=== PATIENT | female | born 1985 | race Caucasian/White ===

== ENCOUNTER 2022-08-09 07:34 | Outpatient (REF) | payer OTHER, SELFPAY ==
--- NOTE | ~2022-08-09 | MR_ITS ---
EXAMINATION: MR LUMBAR SPINE WITHOUT CONTRAST CLINICAL INFORMATION: Persistent radiculopathy. COMPARISON: None TECHNIQUE: MRI of the lumbar spine was obtained using routine sequences without contrast. FINDINGS: Lumbar vertebral bodies maintain normal heights. There is mild retrolisthesis of L3 on L4 and L4 on L5 with mild disc desiccation seen at these levels. Mild amount of endplate edema seen superiorly at L5. The distal spinal cord appears normal. The conus medullaris terminates normally at T12-L1. The visualized paraspinal muscles and intra-abdominal and pelvic contents are within normal limits. SPINAL LEVELS: L1-L2: No posterior disc abnormality. No spinal canal or neural foraminal stenosis. L2-L3: No posterior disc abnormality. No spinal canal or neural foraminal stenosis. L3-L4: Disc bulging with shallow central protrusion and mild facet arthropathy. Mild bilateral neural foraminal stenosis and mild spinal canal stenosis. L4-L5: Disc bulging with central protrusion and superimposed right subarticular extrusion with inferior migration resulting in compression of the traversing right L5 nerve root in the subarticular zone. Mild spinal canal stenosis. No significant neural foraminal stenosis. L5-S1: Disc bulging with right subarticular protrusion resulting in narrowing of the right subarticular zone. Mild to moderate facet arthropathy. Extruded disc material from the L4-L5 level contacts the exiting right L5 nerve root. No neural foraminal stenosis. MR/MR lumbar spine wo con IMPRESSION: 1. At L4-L5 there is right subarticular extrusion with inferior migration causing compression of the traversing right L5 nerve root. Extruded disc material also contacts the exiting right L5 nerve root. 2. At L5-S1 there is right subarticular protrusion without definite traversing nerve root compression. 3. At L3-L4 there is mild spinal canal stenosis and mild bilateral neural foraminal stenosis.
== END 2022-08-09 07:35 | disposition home or self-care (01) ==
LOC: HO.MRI 07:34
PROVIDERS: Visit Provider Nurse Practitioner Family
DX: M54.9 Dorsalgia, unspecified (principal)
CPT/HCPCS: 72148

== ENCOUNTER → 2022-09-29 14:30 | Outpatient (BNVA) | payer OTHER, SELFPAY | PROVIDERS: Visit Provider Physician Assistant ==

== ENCOUNTER 2022-10-06 16:07 | Outpatient (REF) | payer OTHER, SELFPAY ==
--- NOTE | ~2022-10-06 | XR_ITS ---
EXAMINATION: XR CHEST CLINICAL INFORMATION: Cough COMPARISON: None available. TECHNIQUE: 2 views of the chest were obtained. FINDINGS: There is some scarring seen along the minor fissure. There is no evidence of acute parenchymal disease, pneumothorax, or pleural effusion. Heart normal size. No evidence of pulmonary edema. XR/XR chest 2V IMPRESSION: No acute disease.
== END 2022-10-06 16:08 | disposition home or self-care (01) ==
LOC: HO.XRAY 16:07
PROVIDERS: PCP Internal Medicine; Visit Provider Physician Assistant Medical
DX: R05.9 Cough, unspecified (principal)
CPT/HCPCS: 71046

== ENCOUNTER 2023-09-03 08:12 | Outpatient (AMB) | payer OTHER, SELFPAY ==
[2023-09-03 08:45] VITALS: BP 120/90; PULSE 95; TEMP 36.1; O2SAT 99; BMI 33.3
--- NOTE | 2023-09-03 08:45 | AM.OFFWIN_ITS ---
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 Intake Note: pt is bhere today for sore throat ear pain diff bearing started sunday Patient Tobacco Use Status: Never used Tobacco Allergies No Known Allergies Allergy (Verified 09/03/23 08:48) Do you need a note to return to daycare/school/sports/work: No HPI HPI Comments History of Present Illness Details Patient presents to the walk in for 1 week cough, congestion, bilateral ear pain, 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 Answers questions appropriately. Fully engaged in examination. Skin: warm, dry, intact HEENT: bilateral TMS: erythematous, cloudy. Posterior pharynx erythematous without exudate. Sclera without icterus or injection. Cardiac: External chest normal in appearance. Respiratory: +cough. LSCTAB. Abdomen: without gross distension. Neurological: Oriented to person, place, time and situation. Thought process intact. Psychiatric: Appropriate mood and affect. Good judgment and insight.General: awake, alert, oriented. Answers questions appropriately. Fully engaged in examination. Results AMB Rapid Strep AMB Rapid Strep Negative Last Edit by MELANIE Wise on 09/03/23 09:1 2 Results Reviewed Results Reviewed: rapid strep negative Assessment & Plan Assessment & Plan (1) Otitis media: Code(s): H66.90 - Otitis media, unspecified, unspecified ear Qualifiers: Laterality: bilateral Plan Augmentin DS BID for 7 days. Benzonatate 100 mg PO BID PRN Drink plenty of fluids, tylenol/motrin as needed. Work note provided All questions and concerns were addressed during the visit, patient agrees with the plan. Follow up with pcp or in walkin for any new or worsening symptoms. Orders: Orders AMB Rapid Strep Screen Today Z13.9 - Encounter for screening, unspecified Medications: New amoxicillin-pot clavulanate 875-125 mg 1 tab PO BID 14 tabs 0RF benzonatate 100 mg PO BID PRN 20 caps 0RF cough Coding Level of Care Code Est Pt Level 3 (51612) Diagnoses Otitis media H66.90 Laterality: bilateral
== END 2023-09-03 09:18 | disposition home or self-care (01) ==
PROVIDERS: PCP Internal Medicine; Visit Provider Registered Nurse Emergency
DX: H66.90 Otitis media, unspecified, unspecified ear (principal)
CPT/HCPCS: 87880; 99213

== ENCOUNTER 2023-09-13 08:05 | Outpatient (AMB) | payer OTHER, SELFPAY ==
--- NOTE | 2023-09-13 08:12 | AM.OFFWIN_ITS ---
Intake Vital Signs 09/13/23 08:14 Height 5 ft 8 in Weight 221 lb 2 oz BMI 33.6 BP 126/82 Blood Pressure Location Rt brachial Position Sitting Pulse 83 Pulse Source Pulse Oximeter Temp 98.3 F Temp Source Oral Pulse Oximetry (%) 98 Intake Visit Reasons: EP ?ear infection Intake Note: pt is here for c.o ear infection, was here last week and finished round of antibiotics and states not feeling better Patient Tobacco Use Status: Never used Tobacco Allergies No Known Allergies Allergy (Verified 09/13/23 08:16) Do you need a note to return to daycare/school/sports/work: Yes HPI HPI Comments History of Present Illness Details 37 y/o female patient who presents to [facility] in clinic with c/o right ear pain and sore-throat. Pt was seen here 10 days ago for similar issue. She was prescribed Oral Abx, she completed the course and now reports not feeling any better. Denies fevers, chills, [place] and vomiting. PFSH Social History Patient Tobacco Use Status: Never used Tobacco Review of Systems Const All systems reviewed & are unremarkable except as noted in HPI and below Physical Exam Vital Signs: Last Vital Signs Temp 98.3 F 09/13/23 08:14 Pulse 83 09/13/23 08:14 BP 126/82 09/13/23 08:14 Pulse Ox 98 09/13/23 08:14 BMI result Body Mass Index 33.6 Const General: comfortable and no acute distress Orientation/consciousness: patient oriented x3 HEENT Head: Yes normocephalic Ears: external ears normal and TM abnormal bulging, erythematous on the right, with fluid behind the TM bilateral and retracted; not perforated General nose exam: Abnormal mucous membranes and turbinates present boggy and erythematous Mouth: moist mucous membranes Resp Effort & Inspection: normal respiratory effort and able to speak in complete sentences Neuro General: patient oriented x3 Assessment & Plan Assessment & Plan (1) Otitis media: Code(s): H66.90 - Otitis media, unspecified, unspecified ear Qualifiers: Chronicity: subacute Laterality: right Otitis media type: allergic Recurrence: not specified as recurrent Qualified Code(s): H65.111 - Acute and subacute allergic otitis media (mucoid) (sanguinous) (serous), right ear Plan: - Acetaminophen for pain relief - Will Rxd Otic drops for days. - Loratadine 10 mg BID Medications: New ciprofloxacin-dexamethasone 0.3-0.1 % 4 drps otic (ears) BID 7.5 mL 0RF Ear infection 7 days H65.111 - Acute and subacute allergic otitis media (mucoid) (sanguinous) (serous), right ear loratadine (Claritin) 10 mg PO DAILY 60 tabs 0RF H65.111 - Acute and subacute allergic otitis media (mucoid) (sanguinous) (serous), right ear Coding Level of Care Code Est Pt Level 3 (96747) Diagnoses Subacute allergic otitis media of right ear, recurrence not specified H65.111 Chronicity: subacute Laterality: right Otitis media type: allergic Recurrence: not specified as recurrent Time Spent (min) 15
[2023-09-13 08:14] VITALS: BP 126/82; PULSE 83; TEMP 36.8; O2SAT 98; BMI 33.6
== END 2023-09-13 09:20 | disposition home or self-care (01) ==
PROVIDERS: PCP Internal Medicine; Visit Provider Nurse Practitioner Family
DX: H65.111 Acute and subacute allergic otitis media (mucoid) (sanguinous) (serous), right ear (principal)
CPT/HCPCS: 99213

== ENCOUNTER 2024-08-15 15:15 | Outpatient (AMB) | payer OTHER, SELFPAY ==
[2024-08-15 15:17] VITALS: BP 118/67; PULSE 96; RESP 14; TEMP 36.6; O2SAT 97; BMI 31.5
--- NOTE | 2024-08-15 15:17 | MHC.PC.OV ---
Vital Signs 08/15/24 15:17 Height 5 ft 8 in Weight 207 lb BMI 31.5 BP 118/67 Respiration 14 Pulse 96 Pulse Source Pulse Oximeter Temp 97.8 F Temp Source Temporal Artery Scan Pulse Oximetry (%) 97 Oxygen Delivery Method Room Air Intake Visit Reasons: Establish Care Geomagnetist Required: No Accompanied by: Self / Same As Patient Allergies No Known Allergies Allergy (Verified 08/15/24 16:02) Medication List - Last Reconciled 08/15/24 by Pao Danielson PA-C fluoxetine 20 mg PO DAILY loratadine TAKE 1 TABLET BY MOUTH EVERY DAY Tobacco use date assessed: 08/15/24 Dental Screening Dental Screen Date: 08/15/24 Did you have a dental visit in the last 12 months?: No Did you have a dental problem in the last 6 months where you did not have access to dental care?: No Was dental information given to patient?: Patient has dentist HPI Establish Care HPI Details The patient is a 38-year-old female presenting to establish care and assess issues with abdominal pain and muscle cramps. She has a history of anxiety, treated with fluoxetine, and uses loratadine for allergies. Her abdominal discomfort is exacerbated post-dining, particularly after fatty meals, necessitating examination like ultrasound to dismiss gallbladder issues. Past negative H. pylori results are documented. Chronic episodic muscle cramps trace back to a challenging childbirth event, potentially linked to prior back spinal disc changes, although vitamin insufficiencies are being considered. Dietary alterations have been recently implemented. Family planning genetics previously dismissed Factor V Leiden and confirmed disintegration for hemochromatosis. There is a precedent of past cervical surgical intervention (LEEP), with consistent follow-up negative screenings until currently, a mild suspension for retesting. Her family history accentuates breast cancer risk, her mother's case influencing the urgency for mammographic screening. A wide familial cancer occurrence is also referenced. 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 - Diet: Suboptimal, associated with abdominal discomfort particularly following fatty foods; recent dietary modification initiated. - Alcohol: Reports moderate consumption. - Activity: Engages in physical job-related activity but no structured exercise mentioned. - Family dynamics: Large family, significant cancer history. - Family Medical History: Notable for mother's breast cancer, leading to early mammogram requirements. [facility], [facility] Medical History (Updated 08/15/24 @ 17:10 by Pao Danielson PA-C) Anxiety Muscle cramps Allergic rhinitis Establishing care with new doctor, encounter for Cervical cancer screening Rectal prolapse Family history of breast cancer RUQ abdominal pain Family History Mother A-fib BP (high blood pressure) Breast cancer Father A-fib BP (high blood pressure) Social History Housing: House Alcohol intake: current Alcohol intake frequency: a few times a week Patient Tobacco Use Status: Never used Tobacco service: No Current occupational status: employed Cognitive needs: No Hearing needs: No Vision needs: Yes (rx contacts/rx glasses) Questionnaire PHQ-9 Over the last 2 weeks, how often have you been bothered by any of the following problems? 1. Little interest or pleasure in doing things: not at all 2. Feeling down, depressed, or hopeless: not at all 3. Trouble falling or staying asleep, or sleeping too much: not at all 4. Feeling tired or having little energy: not at all 5. Poor appetite or overeating: not at all 6. Feeling bad about yourself - or that you are a failure or have let yourself or your family down: not at all 7. Trouble concentrating on things, such as reading the newspaper or watching television: not at all 8. Moving or speaking so slowly that other people could have noticed. Or the opposite - being so fidgety or restless that you have been moving around a lot more than usual: not at all 9. Thoughts that you would be better off or of hurting yourself in some way: not at all Total score: 0 Depression Screening Interpretation: Negative Depression Screening Done: Yes 57880 - PHQ-9 Billing: Yes Source: Developed by Drs. Cristiano Felder, Radha Andrews, Silas Henson and colleagues, with an educational hubert from [employer]. Thrive Questionnaire Date Thrive assessed: 08/15/24 I am a: Patient What is your living situation today?: I have a steady place to live Within the past 12 months, did the food you bought not last and you didn't have the money to get more?: Never true Within the past 12 months, did you worry whether your food would run out before you got money to buy more?: Never true Do you have trouble paying for medicines?: No Do you have trouble getting transportation to medical appointments?: No Do you have trouble paying your heating and electricity bill?: No Do you have trouble taking care of your child, family member or friend?: No Do you have trouble with day-to-day activities such as bathing, preparing meals, shopping, managing finances, etc.?: No Are you currently unemployed and looking for a job?: No Are you interested in more education?: No Please select the resources that you would like help with: None THRIVE Score: 0 AUDIT C Alcohol Use Questionnaire (AUDIT-C) 1. How often do you have a drink containing alcohol?: 2-3 times a week 2. How many drinks containing alcohol do you have on a typical day when you are drinking?: 1 or 2 3. How often do you have six or more drinks on one occasion?: Never Total Score: 3 Score Reviewed/Action Taken: No CONCETTA-7 AMB Questionnaire CONCETTA-7 Date CONCETTA - 7 assessed: 08/15/24 Feeling nervous, anxious, or on edge: 1 = Several days Not being able to stop or control worryin = Several days Worrying too much about different things: 1 = Several days Trouble relaxin = Several days Being so restless that it is hard to sit still: 0 = Not at all Becoming easily annoyed or irritable: 1 = Several days Feeling afraid as if something awful might happen: 0 = Not at all Total CONCETTA-7 score (0-4 normal; 5-9 mild; 10-14 moderate; 15-21 severe): 5 Source: Developed by Drs. Cristiano Felder, Radha Andrews, Silas Henson and colleagues, with an educational hubert from [employer]. CONCETTA-7 Assessment Billing CONCETTA-7 Assessment Tool: CONCETTA-7 Assessment 22918 Review of Systems Const Details: - Gastrointestinal: Reports abdominal pain postprandial, especially after consuming fatty foods; reports feeling of incomplete evacuation. - Musculoskeletal: Reports frequent muscle cramps or Kevin horses in the right leg, post-trauma; denies swelling. - Neurological: Denies current numbness; reports past foot drop. - Reproductive: Denies recent cervical cancer screening following LEEP procedure. 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 - Allergic/Immunologic: Denies seasonal allergies beyond those managed with current medications. Physical exam (Primary Care) Vital Signs: Last Vital Signs Temp 97.8 F 08/15/24 15:17 Pulse 96 08/15/24 15:17 Resp 14 08/15/24 15:17 BP 118/67 08/15/24 15:17 Pulse Ox 97 08/15/24 15:17 Oxygen Delivery Method Room Air 08/15/24 15:17 Care Plan Goal for BP management: <130/90 at Goal BMI result Body Mass Index 31.5 BMI Assessment/Plan discussion: High BMI High, discussed plan: lifestyle, weight reduction, dietary, physical activity and alcohol moderation Tobacco/Smoking Status: Tobacco use Status Tobacco use date assessed 08/15/24 08/15/24 15:20 Patient Tobacco Use Status Never used Tobacco 08/15/24 15:36 PHQ-9: PHQ-9 Score PHQ-9: Total score 0 08/15/24 15:44 Depression Screening Interpretation: Negative Thrive Assessment: Date of Thrive Assessment Date Thrive assessed 08/15/24 08/15/24 15:20 Const Other: Appearance: Alert. Oriented X3. No acute distress. Head: Normal external exam. Normocephalic. Atraumatic. Eyes: Pupils are equal, round, and reactive to light. Extraocular movements intact. Conjunctiva and sclera normal. Eyelids normal. Ears: External auditory canal normal. Tympanic membranes normal. Throat: Pharynx normal. Uvula midline. Moist mucous membranes. Neck: Normal inspection. Neck supple. Full range of motion. No adenopathy. Thyroid Normal. No meningeal signs. No neck mass noted. Cardiovascular: Normal heart rate and rhythm. Heart sound normal. No murmurs noted. Pulses normal throughout. Respiratory: No respiratory distress. Painless inspiration. Breath sounds normal. No wheezes/rales/rhonchi noted. Chest nontender. No accessory muscle usage noted or decreased air movement noted. Abdomen: Soft and nontender. Bowel sounds normal in all 4 quadrants. No distention noted. No organomegaly noted. No visible injury noted. Back: No costovertebral angle tenderness. Full range of motion noted. Skin: Skin warm and dry. Normal skin color. Normal skin turgor. No rashes/lesions/lacerations noted. Extremities: No lower extremity edema. Extremities exhibit normal range of motion. Extremities nontender. Right leg with history of numbness and occasional Kevin horses. Neuro: Oriented X 3. No motor deficit. No sensory deficit. Reflexes normal. Results Reviewed Results Reviewed: - Labs: Normal cholesterol levels with LDL 126 mg/dL, HDL 48 mg/dL, total cholesterol 151 mg/dL; normal glucose, kidney function, sodium, and potassium levels. - Tests: Past negative H. pylori result documented; ultrasound recommended. Coding Level of Care Code Est Pt Level 4 (57526) Complex EM visit Add On G2211 Diagnoses Establishing care with new doctor, encounter for Z76.89 RUQ abdominal pain R10.11 Cervical cancer screening Z12.4 Rectal prolapse K62.3 Family history of breast cancer Z80.3 Allergic rhinitis J30.9 Muscle cramps R25.2 Anxiety F41.9 Additional Codes CONCETTA-7 Assessment Billing - CONCETTA-7 Assessment Tool: CONCETTA-7 Assessment 10316 ([id number]) PHQ-9 - 43185 - PHQ-9 Billing: Yes ([id number]) Assessment & Plan Assessment & Plan (1) Establishing care with new doctor, encounter for: Code(s): Z76.89 - Persons encountering health services in other specified circumstances Category: Medical Plan: Patient was a patient of [facility]. Patient establishing care with us today. (2) RUQ abdominal pain: Code(s): R10.11 - Right upper quadrant pain Category: Medical Plan: Initiation of pantoprazole postponed for H. pylori retest; ultrasound for gallbladder investigation. GI referral if further examinations necessitate subsequent treatment. (3) Cervical cancer screening: Code(s): Z12.4 - Encounter for screening for malignant neoplasm of cervix Category: Medical Plan: Will refer to tetryl wringer operator for cervical cancer screening. (4) Rectal prolapse: Code(s): K62.3 - Rectal prolapse Category: Medical Plan: Referral to GI to rule out underlying causes of abdominal pain and address prolapse issues for potential corrective measures. Condition is chronic and stable continue to monitor. (5) Family history of breast cancer: Code(s): Z80.3 - Family history of malignant neoplasm of breast Category: Medical Plan: The patient was advised to undergo a mammogram given her family history to enable early detection and intervention. (6) Allergic rhinitis: Code(s): J30.9 - Allergic rhinitis, unspecified Category: Medical Plan: Loratadine will be continued for allergic rhinitis management pending any changes in symptoms. Condition is chronic and stable continue to monitor. (7) Muscle cramps: Code(s): R25.2 - Cramp and spasm Category: Medical Plan: Await bloodwork results for deficiencies impacting muscle function. Advised additional nutritional focus and commencement of vitamin regimes if insufficient values are noted. Condition is stable will continue to monitor. (8) Anxiety: Code(s): F41.9 - Anxiety disorder, unspecified Category: Medical Plan: The patient will continue fluoxetine for anxiety management. Monitoring for any side effects or need for dose adjustment will occur during follow-up visits. Condition is chronic and stable continue to monitor. Plan Plan Patient was informed and verbally consented to the use of an ambient scribe for clinic note documentation during this visit. 1. Anxiety The patient will continue fluoxetine for anxiety management. Monitoring for any side effects or need for dose adjustment will occur during follow-up visits. 2. Allergic Rhinitis Loratadine will be continued for allergic rhinitis management pending any changes in symptoms. 3. Abdominal Pain Initiation of pantoprazole postponed for H. pylori retest; ultrasound for gallbladder investigation. GI referral if further examinations necessitate subsequent treatment. 4. Family History Of Breast Cancer The patient was advised to undergo a mammogram given her family history to enable early detection and intervention. 5. Rectal Prolapse Referral to GI to rule out underlying causes of abdominal pain and address prolapse issues for potential corrective measures. 6. Episodic Muscle Cramps Await bloodwork results for deficiencies impacting muscle function. Advised additional nutritional focus and commencement of vitamin regimes if insufficient values are noted. 7. Vitamin Deficiency Probable Pending lab outcomes, the patient will receive tailored advice on dietary intake or supplement requirements. I engaged the patient in a comprehensive review of her symptoms and current management strategies. For her anxiety, continuing fluoxetine was recommended, providing consistent symptom control. Regarding her abdominal pain, I discussed the need for an ultrasound and reiterated the importance of retesting for H. pylori prior to prescribing pantoprazole. We reviewed family history implications on her medical regimen, specifically the importance of a mammogram owing to her mother's breast cancer. I advised avoiding predisposed dietary triggers to alleviate gastrointestinal discomfort and considered dietary adjustments to address probable vitamin deficiencies. We agreed on referrals to Gastroenterology and subsequent testing to evaluate her prolapsed condition and ascertain any neurological implications underlying muscle cramps. I emphasized maintaining an open portal for any arising concerns or queries. Orders: Orders US abdomen complete Today R10.11 - Right upper quadrant pain Complete Blood Count Auto Diff Today Z00.00 - Encounter for general adult medical examination without abnormal findings Comprehensive Ancram. Panel Fast Today Z00.00 - Encounter for general adult medical examination without abnormal findings Lipid Panel Today Z00.00 - Encounter for general adult medical examination without abnormal findings Hemoglobin A1c Today Z00.00 - Encounter for general adult medical examination without abnormal findings Vitamin D 25-OH Total Today Z00.00 - Encounter for general adult medical examination without abnormal findings MM screening mammo BI Today Z12.31 - Encounter for screening mammogram for malignant neoplasm of breast, Z80.3 - Family history of malignant neoplasm of breast Zinc Today Z00.00 - Encounter for general adult medical examination without abnormal findings C Reactive Protein Today Z00.00 - Encounter for general adult medical examination without abnormal findings Magnesium Today Z00.00 - Encounter for general adult medical examination without abnormal findings Liver Panel Today Z00.00 - Encounter for general adult medical examination without abnormal findings TSH reflex Free T4 Today Z00.00 - Encounter for general adult medical examination without abnormal findings Vitamin B12 and Folate Today Z00.00 - Encounter for general adult medical examination without abnormal findings H pylori Ag Stool Today R10.11 - Right upper quadrant pain Vitamin A Today Z00.00 - Encounter for general adult medical examination without abnormal findings Vitamin B1 Today Z00.00 - Encounter for general adult medical examination without abnormal findings Creatine Kinase Total Today Z00.00 - Encounter for general adult medical examination without abnormal findings Referrals Gastroenterology Referral K62.3 - Rectal prolapse, R10.11 - Right upper quadrant pain PRACTICE ADMINISTRATOR Referral Z12.4 - Encounter for screening for malignant neoplasm of cervix Medications: New pantoprazole 40 mg PO DAILY 90 tabs 2RF Patient Instructions: - Continue taking fluoxetine and loratadine as directed. - Complete blood work and stool testing as advised. - Attend upcoming mammogram and ultrasound appointments. - Avoid fatty foods to reduce abdominal pain. - Begin dietary adjustments to include more balanced nutrients. - Follow up with GI as referred, and attend your six-month follow-up. - Monitor muscle cramps and increase Vitamin B and magnesium as dietary supplements.
== END 2024-08-15 16:03 | disposition home or self-care (01) ==
LOC: HO.HMCSH 15:15
PROVIDERS: PCP Internal Medicine; Visit Provider Physician Assistant Medical
DX: Z76.89 Persons encountering health services in other specified circumstances (principal); R10.11 Right upper quadrant pain; Z12.4 Encounter for screening for malignant neoplasm of cervix; K62.3 Rectal prolapse; Z80.3 Family history of malignant neoplasm of breast; J30.9 Allergic rhinitis, unspecified; R25.2 Cramp and spasm; F41.9 Anxiety disorder, unspecified

== ENCOUNTER → 2024-08-15 15:15 | Outpatient (BNVA) | payer OTHER, SELFPAY | PROVIDERS: PCP Internal Medicine; Visit Provider Physician Assistant Medical | DX: K62.3 Rectal prolapse (principal); R10.11 Right upper quadrant pain; J30.9 Allergic rhinitis, unspecified; R25.2 Cramp and spasm; F41.9 Anxiety disorder, unspecified; Z76.89 Persons encountering health services in other specified circumstances; Z80.3 Family history of malignant neoplasm of breast | CPT/HCPCS: 96127 ==

== ENCOUNTER 2024-08-19 12:45 | Outpatient (REF) | payer OTHER, SELFPAY ==
[2024-08-19 13:06] LABS: MANUAL DIFF FLAG NO
[2024-08-19 13:45] LABS: Basophils Absolute Auto 0.1 X10*3/uL (0.0-0.2); Basophils Percent Auto 0.8 % (0-2); Eosinophils Absolute Auto 0.2 X10*3/uL (0.0-0.4); Eosinophils Percent Auto 1.7 % (0-4); Hematocrit 39.9 % (37.0-47.0); Hemoglobin 13.8 g/dl (12.0-16.0); Imm Gran Abs Auto 0.02 X10*3/uL (0.00-0.03); Imm Gran Pct Auto 0.2 % (0.0-0.4); Lymphocytes Absolute Auto 3.3 X10*3/uL (1.2-4.9); Lymphocytes Percent Auto 37.3 % (20-40); Mean Corpuscular HGB Conc 34.6 g/dl (31.0-35.0); Mean Corpuscular Hemoglobin 31.5 pg (27.0-33.0); Mean Corpuscular Volume 91.1 fL (80.0-98.0); Mean Platelet Volume 9.6 fL (9.4-12.3); Monocytes Absolute Auto 0.5 X10*3/uL (0.1-1.2); Monocytes Percent Auto 6.1 % (2-11); Neutrophils Absolute Auto 4.7 x10*3/uL (2.0-8.3); Neutrophils Percent Auto 53.9 % (45-73); Platelet Count 361 X10*3/uL (160-400); Red Blood Count 4.38 X10*6/uL (4.20-5.50); Red Cell Distribution Width 12.7 % (11.0-16.0); White Blood Count 8.8 X10*3/uL (4.8-10.8)
[2024-08-19 13:50] LABS: Estimated Average Glucose 111 mg/dL; Hemoglobin A1C 129.8994 umol/L; Hemoglobin A1c % 5.5 % (<6.0); Total Hemoglobin (HGBA1C) 3599.3679 umol/L
[2024-08-19 14:16] LABS: Alanine Aminotransferase 39 U/L (0-31); Albumin Level 4.7 g/dL (3.5-5.0); Alkaline Phosphatase 82 U/L (39-117); Anion Gap 9 (12-20); Aspartate Amino Transferase 34 U/L (5-31); Bilirubin Direct 0.1 mg/dL (0.0-0.5); Bilirubin Total 0.4 mg/dL (0.0-1.0); Blood Urea Nitrogen 10 mg/dL (9-16); C Reactive Protein 0.28 mg/dL (< or = 0.50); Calcium 9.7 mg/dL (8.4-10.2); Carbon Dioxide 27 mmol/L (22-29); Chloride 104 mmol/L (96-108); Cholesterol 215 mg/dL (<200); Estimated Glomerular Filt Rate > 60; Glucose Fasting 92 mg/dL (60-99); HDL Cholesterol 68 mg/dL (>40); LDL Cholesterol Calculated 123 mg/dL (<100); Magnesium 1.9 mg/dL (1.6-2.6); Potassium 4.1 mmol/L (3.3-5.1); Sodium 136 mmol/L (135-145); Total Protein 7.7 g/dL (6.5-8.0); Triglycerides 122 mg/dL (<150)
[2024-08-19 14:35] LABS: Vitamin D 25-OH Total 42.2 ng/mL (>30)
[2024-08-19 14:43] LABS: Folate 16.1 ng/mL (> or = 4.0); Vitamin B12 440 pg/mL (200-900)
[2024-08-22 04:42] LABS: Zinc 66 mcg/dL (60-130)
[2024-08-22 19:38] LABS: Vitamin A 74 mcg/dL (38-98)
[2024-08-24 14:18] LABS: Vitamin B1 7 nmol/L (8-30)
== END 2024-08-19 12:46 | disposition home or self-care (01) ==
LOC: HO.LAB 12:45
PROVIDERS: PCP Physician Assistant Medical; Visit Provider Physician Assistant Medical
DX: Z00.00 Encounter for general adult medical examination without abnormal findings (principal); Z13.1 Encounter for screening for diabetes mellitus; Z13.0 Encounter for screening for diseases of the blood and blood-forming organs and certain disorders involving the immune mechanism; Z13.29 Encounter for screening for other suspected endocrine disorder; Z13.220 Encounter for screening for lipoid disorders
CPT/HCPCS: 36415; 80053; 80061; 80076; 82248; 82306; 82550; 82607; 82746; 83036; 83735; 84425; 84443; 84590; 84630; 85025; 86140

== ENCOUNTER 2024-08-20 10:30 | Outpatient (REF) | payer OTHER, SELFPAY | END 2024-08-20 10:31 | disposition home or self-care (01) | LOC: HO.LNP 10:30 | PROVIDERS: Visit Provider Physician Assistant Medical | DX: R10.11 Right upper quadrant pain (principal) | CPT/HCPCS: 87338 ==

== ENCOUNTER 2024-09-02 11:35 | Outpatient (REF) | payer OTHER, SELFPAY | END 2024-09-02 11:36 | disposition home or self-care (01) | LOC: HO.MAMMO 11:35 | PROVIDERS: PCP Physician Assistant Medical; Visit Provider Physician Assistant Medical | DX: Z12.31 Encounter for screening mammogram for malignant neoplasm of breast (principal) | CPT/HCPCS: 77063; 77067 ==

== ENCOUNTER → 2024-09-02 11:37 | Outpatient (BNV) | payer OTHER, SELFPAY | PROVIDERS: PCP Physician Assistant Medical; Visit Provider Internal Medicine | DX: Z12.31 Encounter for screening mammogram for malignant neoplasm of breast (principal) | CPT/HCPCS: 77063; 77067 ==

== ENCOUNTER 2024-09-29 12:27 | Outpatient (REF) | payer OTHER, SELFPAY ==
--- NOTE | ~2024-09-29 | US_ITS ---
EXAMINATION: US ABDOMEN HISTORY: R10.11 - Right upper quadrant pain TECHNIQUE: Real-time grayscale ultrasound imaging of the abdomen was performed and images were reviewed. COMPARISON: There are no prior studies available for comparison. FINDINGS: Liver: The right lobe of the liver measures 17.8 cm in size. The left lobe of the liver measures 11.9 cm in size. The liver demonstrates increased echotexture, consistent with steatosis. No focal mass or intrahepatic biliary ductal dilatation is identified. There is normal hepatopedal flow in the portal vein. Gallbladder and biliary tree: The gallbladder is unremarkable, without evidence of calculi, wall thickening, or pericholecystic fluid. There is no sonographic Montesinos sign. The common bile duct is normal in caliber measuring 4 mm. Kidneys: The right kidney measures 11.1 cm in length. The left kidney measures 13.0 cm in length. The kidneys are unremarkable, without evidence of masses, hydronephrosis, or calculi. Pancreas: The pancreatic head, neck, and body are unremarkable. The pancreatic tail is obscured by bowel gas. Spleen: The spleen is normal in size and contour, measuring 10.4 cm in length. Abdominal aorta and inferior vena cava: The visualized portions of the abdominal aorta and inferior vena cava are normal in caliber. There is no free fluid in the abdomen. US/US abdomen complete IMPRESSION: Hepatomegaly and hepatic steatosis. Otherwise unremarkable abdominal ultrasound. Electronically signed by: Cristiano Gamble MD 09/29/2024 01:20 PM EDT
== END 2024-09-29 12:28 | disposition home or self-care (01) ==
LOC: HO.US 12:27
PROVIDERS: Visit Provider Physician Assistant Medical
DX: R10.11 Right upper quadrant pain (principal)
CPT/HCPCS: 76700

== ENCOUNTER → 2024-09-29 12:31 | Outpatient (BNV) | payer OTHER, SELFPAY | PROVIDERS: Visit Provider Radiology Diagnostic Radiology | DX: R16.0 Hepatomegaly, not elsewhere classified (principal); K76.0 Fatty (change of) liver, not elsewhere classified | CPT/HCPCS: 76700 ==

== ENCOUNTER 2024-10-01 11:12 | Outpatient (REF) | payer OTHER, SELFPAY ==
[2024-10-01 12:23] LABS: Appearance Urine Clear; Glucose Urine UA Negative (Negative); PH 6.0 (5.0-9.0); Specific Gravity - Urine <= 1.005 (1.005-1.025); UMIC TRIGGER UACC YES
[2024-10-01 12:28] LABS: UACC Culture Trigger YES
== END 2024-10-01 11:13 | disposition home or self-care (01) ==
LOC: HO.LAB 11:12
PROVIDERS: PCP Physician Assistant Medical; Visit Provider Physician Assistant Medical
DX: R30.0 Dysuria (principal)
CPT/HCPCS: 81001; 87086; 87088; 87186

== ENCOUNTER 2024-10-02 09:47 | Outpatient (AMB) | payer OTHER, SELFPAY ==
--- NOTE | 2024-10-02 09:45 | A.OFFPC_ITS ---
Intake Visit Reasons: discuss possible UTI(UA ordered) Allergies No Known Allergies Allergy (Verified 10/02/24 10:56) Medication List - Last Reconciled 10/02/24 by Poa Danielson PA-C fluoxetine 20 mg PO DAILY loratadine TAKE 1 TABLET BY MOUTH EVERY DAY nitrofurantoin monohyd/m-cryst 100 mg (Macrobid) 100 mg PO BID 7 days pantoprazole 40 mg PO DAILY tirzepatide (weight loss) (Zepbound) 2.5 mg (0.5 mL) subcut QWEEK Tobacco use date assessed: 08/15/24 Dental Screening Dental Screen Date: 08/15/24 HPI discuss possible UTI(UA ordered) HPI Details The patient is a 38-year-old female presenting with symptoms suggestive of a urinary tract infection. She reported urinary frequency and discomfort, which led to the initiation of Macrobid treatment after laboratory results indicated the presence of blood, white blood cells, and bacteria in the urine. The patient began the antibiotic treatment last night and reported feeling significantly better the following morning. An abdominal ultrasound was performed, revealing mild hepatomegaly and fatty liver, which was noted to be a common finding. The patient expressed concern about her diet and its potential impact on her liver health. [facility] Medical History (Updated 10/02/24 @ 10:59 by Pao Danielson PA-C) Fatty liver UTI (urinary tract infection) Dysuria Pre-diabetes Class 1 obesity with body mass index (BMI) of 31.0 to 31.9 in adult Elevated AST (SGOT) Elevated ALT measurement Pure hypercholesterolemia, unspecified Hyperlipidemia LDL goal <100 Anxiety Muscle cramps Allergic rhinitis Establishing care with new doctor, encounter for Cervical cancer screening Rectal prolapse Family history of breast cancer RUQ abdominal pain Family History Mother A-fib BP (high blood pressure) Breast cancer Father A-fib BP (high blood pressure) Social History Housing: House Alcohol intake: current Alcohol intake frequency: a few times a week Patient Tobacco Use Status: Never used Tobacco service: No Current occupational status: employed Cognitive needs: No Hearing needs: No Vision needs: Yes (rx contacts/rx glasses) Questionnaire Thrive Questionnaire Date Thrive assessed: 08/15/24 CONCETTA-7 AMB Questionnaire CONCETTA-7 Date CONCETTA - 7 assessed: 08/15/24 Source: Developed by Drs. Cristiano Felder, Radha Andrews, Silas Henson and colleagues, with an educational hubert from [employer]. Review of Systems Const Details: - Genitourinary: Reports urinary frequency and discomfort. Denies fever, nausea, vomiting, or abdominal pain. All systems reviewed & are unremarkable except as noted in HPI and below Physical exam (Primary Care) Tobacco/Smoking Status: Tobacco use Status Tobacco use date assessed 08/15/24 10/02/24 09:45 Patient Tobacco Use Status Never used Tobacco 10/02/24 09:45 Thrive Assessment: Date of Thrive Assessment Date Thrive assessed 08/15/24 10/02/24 09:45 Telehealth Telehealth Telehealth Platform: Telephone Location of provider rendering services: practice address Location of patient: address on file Patient Identification confirmed using: Name, : Yes Telehealth method: voice only Patient verbally consented to treatment: Yes Patient verbally consented to billing insurance company: Yes Patient informed of any privacy concerns related to visit: Yes Minutes spent on Phone/Video with Pt.: 25 Results Reviewed Results Reviewed: UA revealed leukocytes, bacteria negative nitrates and some blood positive for UTI. Coding Level of Care Code Tele New Pt Level 5 (90208) Complex EM visit Add On G2211 Diagnoses UTI (urinary tract infection) N39.0 Fatty liver K76.0 Time Spent (min) 25 Assessment & Plan Assessment & Plan (1) UTI (urinary tract infection): Code(s): N39.0 - Urinary tract infection, site not specified Category: Medical Plan: The patient was diagnosed with a urinary tract infection based on laboratory findings of hematuria, pyuria, and bacteriuria. Macrobid was prescribed and initiated, with the patient reporting improvement in symptoms the following day. A urine culture was ordered to confirm the causative organism and ensure appropriate antibiotic coverage. (2) Fatty liver: Code(s): K76.0 - Fatty (change of) liver, not elsewhere classified Category: Medical Plan: An abdominal ultrasound revealed mild hepatomegaly and fatty liver. The patient was advised on dietary modifications to manage liver health and was reassured about the commonality of the finding. Plan Plan Patient was informed and verbally consented to the use of an ambient scribe for clinic note documentation during this visit. 1. Urinary Tract Infection The patient was diagnosed with a urinary tract infection based on laboratory findings of hematuria, pyuria, and bacteriuria. Macrobid was prescribed and initiated, with the patient reporting improvement in symptoms the following day. A urine culture was ordered to confirm the causative organism and ensure appropriate antibiotic coverage. 2. Fatty Liver An abdominal ultrasound revealed mild hepatomegaly and fatty liver. The patient was advised on dietary modifications to manage liver health and was reassured about the commonality of the finding. I discussed with the patient the diagnosis of a urinary tract infection and the initiation of Macrobid, explaining the importance of completing the antibiotic course. I also reviewed the abdominal ultrasound findings, noting the presence of fatty liver and advising dietary modifications. The patient was informed about potential symptoms indicating kidney involvement and was advised to report any such symptoms immediately. 25 minutes spent in total on patient care, including history review, assessment, plan and counseling. Patient Instructions: - Complete the full course of Macrobid as prescribed. - Monitor for symptoms such as fever, nausea, vomiting, or abdominal pain and report immediately if they occur. - Follow dietary recommendations to manage liver health.
== END 2024-10-02 11:13 | disposition home or self-care (01) ==
LOC: HO.HMCSH 09:47
PROVIDERS: PCP Physician Assistant Medical; Visit Provider Physician Assistant Medical
DX: N39.0 Urinary tract infection, site not specified (principal); K76.0 Fatty (change of) liver, not elsewhere classified

== ENCOUNTER → 2024-10-02 09:47 | Outpatient (BNVA) | payer OTHER, SELFPAY | PROVIDERS: PCP Physician Assistant Medical; Visit Provider Physician Assistant Medical | DX: N39.0 Urinary tract infection, site not specified (principal); K76.0 Fatty (change of) liver, not elsewhere classified | CPT/HCPCS: 98968 ==

== ENCOUNTER 2024-11-19 14:58 | Outpatient (AMB) | payer OTHER, SELFPAY ==
--- NOTE | 2024-11-19 15:01 | A.OFFVIS_ITS ---
Vital Signs 11/19/24 15:03 Height 5 ft 8 in Weight 202 lb 13.204 oz BMI 30.8 Blood Pressure Location Lt brachial Position Sitting Intake Visit Reasons: RUQ pain rectal prolapse Intake Note: Soo presents in the office as a new patient for RUQ pains and rectal prolapse. CC: constipation and some pains in the stomach. No blood when she has a BM. [place] Wrapper Maker Required: No Allergies No Known Allergies Allergy (Verified 11/19/24 15:03) HPI HPI RUQ pain rectal prolapse: Details: Patient is a 38-year-old female with PMH of anxiety, obesity and hyperlipidemia . Referred by PCP for further evaluation of abdominal pain and elevated liver enzymes Soo presents with a long history of intermittent abdominal pain, primarily localized in the epigastric region, which started approximately five years ago. Pain is described as variable in intensity and is notably improved with pantoprazole. She restarted pantoprazole 40 mg a few months ago, achieving symptomatic improvement. Soo also reports episodes of right upper quadrant pain, which sometimes worsens when constipated. Constipation began three days ago, coinciding with discontinuation of daily Miralax, which had previously been used consistently for two months resulting in daily bowel movements without difficulty. Current bowel movements remain difficult, occurring daily but requiring substantial ef fort. Associated symptoms include occasional heartburn and rare regurgitation. Soo?s recent ultrasound from 09-29-2024 revealed evidence of fatty liver, but no gallstones, biliary duct abnormality, or organ issues in other systems. She endorses intentional weight loss with tirzepatide initiated two months ago, noting improved control over dietary choices but experiencing constipation as a side effect. Soo also mentions a history of rectal prolapse identified by her information engineer, noting urinary retention during episodes of increased straining associated with constipation. Patient denies: fever/chills, n/v, appetite changes, dysphasia, unintentional wt loss, ab pain or melena/hematochezia. [facility] Medical History (Updated 11/19/24 @ 16:41 by Lubna De Dios CNP) Constipation Epigastric pain Acid reflux Fatty liver UTI (urinary tract infection) Dysuria Pre-diabetes Class 1 obesity with body mass index (BMI) of 31.0 to 31.9 in adult Elevated AST (SGOT) Elevated ALT measurement Pure hypercholesterolemia, unspecified Hyperlipidemia LDL goal <100 Anxiety Muscle cramps Allergic rhinitis Establishing care with new doctor, encounter for Cervical cancer screening Rectal prolapse Family history of breast cancer RUQ abdominal pain Surgical History (Updated 11/19/24 @ 15:03 by JUNAID Alarcon) History of ankle surgery Family History Mother A-fib BP (high blood pressure) Breast cancer Father A-fib BP (high blood pressure) Social History Housing: House Alcohol intake: current Alcohol intake frequency: a few times a week Patient Tobacco Use Status: Never used Tobacco service: No Current occupational status: employed Cognitive needs: No Hearing needs: No Vision needs: Yes (rx contacts/rx glasses) Review of Systems Const Reports as per HPI ENT Reports as per HPI Card Reports as per HPI Resp Reports as per HPI GI Reports as per HPI Reports as per HPI Physical Exam Vital Signs: BMI result Body Mass Index 30.8 Const General: healthy appearing, no acute distress and well developed Nutritional Appearance: average body habitus Orientation/consciousness: patient oriented x3 HEENT Head: Yes normal to inspection, Yes normocephalic and Yes atraumatic Face and sinus: Yes normal facial exam Eyes General: appearance normal, both eyes and all related structures Neck Neck: Yes normal visual inspection Resp Effort & Inspection: normal respiratory effort, able to speak in complete sentences, no tracheal deviation and symmetric chest movement Auscultation: clear to auscultation bilaterally Cardio Jugular venous distension: no JVD Rate: regular rate Rhythm: regular rhythm Heart sounds: S1 normal heart sound present, S2 normal heart sound present, no gallops and no murmurs GI Inspection: Yes normal to inspection, No distended, Yes obesity and Yes striae Palpation (GI): Soft to palpation, not firm, nontender and No hepatosplenomegaly present Auscultation: normal bowel sounds Neuro General: patient oriented x3 Gait exam (Neuro): Normal gait present Psych Appearance: grossly normal Mental Status: mental status grossly normal Speech and movement: Normal speech and movement present Affect: normal affect Attitude: cooperative Thought process: Normal thought process present Thought content: Normal thought content present Insight: Good insight present (Psych) Judgement: Good judgement present (Psych) Results Reviewed Results Reviewed: Date of Service: 09/29/24 Procedure(s): US abdomen complete Accession Number(s): [id number] cc: Pao Danielson PA-C~ EXAMINATION: US ABDOMEN HISTORY: R10.11 - Right upper quadrant pain TECHNIQUE: Real-time grayscale ultrasound imaging of the abdomen was performed and images were reviewed. COMPARISON: There are no prior studies available for comparison. FINDINGS: Liver: The right lobe of the liver measures 17.8 cm in size. The left lobe of the liver measures 11.9 cm in size. The liver demonstrates increased echotexture, consistent with steatosis. No focal mass or intrahepatic biliary ductal dilatation is identified. There is normal hepatopedal flow in the portal vein. Gallbladder and biliary tree: The gallbladder is unremarkable, without evidence of calculi, wall thickening, or pericholecystic fluid. There is no sonographic Montesinos sign. The common bile duct is normal in caliber measuring 4 mm. Kidneys: The right kidney measures 11.1 cm in length. The left kidney measures 13.0 cm in length. The kidneys are unremarkable, without evidence of masses, hydronephrosis, or calculi. Pancreas: The pancreatic head, neck, and body are unremarkable. The pancreatic tail is obscured by bowel gas. Spleen: The spleen is normal in size and contour, measuring 10.4 cm in length. Abdominal aorta and inferior vena cava: The visualized portions of the abdominal aorta and inferior vena cava are normal in caliber. There is no free fluid in the abdomen. US/US abdomen complete IMPRESSION: Hepatomegaly and hepatic steatosis. Otherwise unremarkable abdominal ultrasound. Electronically signed by: Cristiano Gamble MD 09/29/2024 01:20 PM EDT Assessment & Plan Assessment & Plan (1) Acid reflux: Code(s): K21.9 - Gastro-esophageal reflux disease without esophagitis Category: Medical Qualifiers: Esophagitis presence: esophagitis presence not specified Qualified Code(s): K21.9 - Gastro-esophageal reflux disease without esophagitis Plan: Improved symptoms with pantoprazole, associated epigastric pain, heartburn; rare regurgitation without dysphagia or alarm features Additional Testing: Upper GI series (non-invasive imaging for structural assessment); potential escalation to endoscopy based on findings Medication Management: Continue pantoprazole 40 mg daily Lifestyle Recommendations: Avoid known triggers, eat smaller meals, remain upright after meals (2) Rectal prolapse: Code(s): K62.3 - Rectal prolapse Category: Medical Plan: Symptoms reported by information engineer, urinary retention during episodes of prolapse-related straining Additional Testing: Rectal exam deferred per pt request; reevaluation planned Medication Management: prolapse management pending evaluation Lifestyle Recommendations: Reduce straining through constipation management (fiber, hydration, Miralax); consider pelvic floor therapy or biofeedback exercises Follow-Up: Physical exam at follow-up; potential referral to general surgery if prolapse worsens or non-surgical therapies ineffective (3) Fatty liver: Code(s): K76.0 - Fatty (change of) liver, not elsewhere classified Category: Medical (4) Constipation: Code(s): K59.00 - Constipation, unspecified Category: Medical Qualifiers: Constipation type: unspecified constipation type Qualified Code(s): K59.00 - Constipation, unspecified Plan: Acute onset after discontinuation of Miralax; bowel movement decreased and requires effort; risk of rectal prolapse worsening with straining Medication Management: Resume daily Miralax Lifestyle Recommendations: Increase fiber intake, adequate water hydration, p revent straining during bowel movements, and consider light physical exercise Follow-Up: Symptom resolution monitoring at follow-up; advised to report new- onset abdominal pain, blood in stools, or refractory constipation Plan Follow-up in 8 weeks or sooner as needed Time: I spent a total of 30 minutes on the date of encounter which includes: Preparing to see the patient (reviewed previous documentation, test results and medical history) Performing a medically appropriate exam and/or evaluation Ordering medications, tests, and procedures Documenting clinical information in the health record Orders: Orders [place] upper GI small bowel Today K21.9 - Gastro-esophageal reflux disease without esophagitis, R10.13 - Epigastric pain Comprehensive [place]. Panel Fast Today K76.0 - Fatty (change of) liver, not elsewhere classified Hepatitis A,B,C Profile Today K76.0 - Fatty (change of) liver, not elsewhere classified Hemoglobin A1c Today K76.0 - Fatty (change of) liver, not elsewhere classified, R73.03 - Prediabetes Smooth Muscle Antibody Today K76.0 - Fatty (change of) liver, not elsewhere classified Mitochondrial Antibody Today K76.0 - Fatty (change of) liver, not elsewhere classified VALE Reflex Titer and Pattern Today K76.0 - Fatty (change of) liver, not elsewhere classified HIV Ab/Ag Today K76.0 - Fatty (change of) liver, not elsewhere classified Ferritin Today K76.0 - Fatty (change of) liver, not elsewhere classified Coding Level of Care Code New Pt New Pt Level 3 (10615) Patient Type New Diagnoses Gastroesophageal reflux disease, unspecified whether esophagitis present K21.9 Esophagitis presence: esophagitis presence not specified Rectal prolapse K62.3 Fatty liver K76.0 Constipation, unspecified constipation type K59.00 Constipation type: unspecified constipation type
[2024-11-19 15:03] VITALS: BMI 30.8
--- OUTSIDE RECORDS SUMMARY | 2024-11-19 15:54 | XMS_ITS | Clinical Summary ---
Author Organization [facility] Address [address] [place] [address] Phone Care Team Providers Care Airport Operations Specialist Name Role Phone Stacey Novoa DO Primary Care Provider Allergies Active Allergy Reactions Criticality Noted Date Comments Latex 12/30/2014 Other reaction(s): sensitivity Medications loratadine (CLARITIN) 10 mg tablet Take 1 tablet by mouth daily. Active ibuprofen (ADVIL,MOTRIN) 600 MG tablet Take 1 tablet by mouth 3 (three) times a day. Active fluticasone propionate (FLONASE) 50 mcg/actuation nasal spray 1 spray by Nasal route daily. Active Active Problems No known active problems Resolved Problems Problem Noted Date Diagnosed Date Resolved Date Rh negative state in antepartum period 06/06/2018 07/02/2018 Overview (06/06/2018): Will need Rhogam @ 28 wks Encounter for supervision of normal in first trimester 06/05/2018 07/02/2018 Overview (07/08/2018): MAISHA NAVARRO - unsure, ask at FOB visit Childbirth Ed? Group PN care? * Rh A neg Tdap * Flu * Hgb * GTT * GBS * PPBC * screening - cfDNA negative Multigravida of advanced mat ernal age in first trimester 06/05/2018 07/02/2018 Overview (07/08/2018): Will be 33 by NAVI o Risks of aneuploidy discussed w patient. o Offered - Offer cell free DNA - Level 2 - Offer [facility] and amnio o Pt. chooses cfNDA and Level 2 cfDNA negative Immunizations Immunization Administration Dates Next Due Hepatitis B 02/15/1996 Hepatitis B Adult 02/15/1996,09/15/1995,08/14/18 96 Influenza Quadrivalent Intranasal 01/05/2010 MMR 02/15/1996 Meningococcal unknown serogroups 10/16/2001 PPD Test 07/27/2015, 5,08/03/2014,12/02,11/24/2013 Td (adult) 5 Lf Tetanus Toxo id, PF, Adsorbed 05/04/2003 Tdap 04/21/2014 Family History Medical History Relation Comments Other Cousin clotting disorde r Atrial fibrillation Father CV disease Father LIZ disease Father Skin cancer Father Cancer Maternal Aunt CV disease Maternal Grandfather Diabetes mellitus Maternal Grandfather Obesity Mother Skin cancer Mother Other Paternal Aunt clotting disorde r CV disease Paternal Grandfather CV disease Paternal Grandmother Cancer Paternal Grandmother Cancer Sibling Relation Status Comments Cousin (Age 35) Daughter Alive Father Alive Maternal Aunt Maternal Grandfather Mother Alive Paternal Aunt Paternal Grandfather Paternal Grandmother Sibling Social History Tobacco Use Types Packs/Day Years Used Date Smoking Tobacco: Never Smokeless Tobacco: Never Alcohol Use Standard Drinks/Week Comments Yes 0 (1 standard drink = 0.6 oz pur e alcohol) occasionally Education Answer Date Recorded Are you interested in more education? Not on kina e 07/28/2022 Are you concerned about learning? Not on file 07/28/2022 No 07/28/2022 No 07/28/2022 Digital Access Answer Date Recorded No 08/25/2022 No 08/25/2022 Reliable internet access at home? Not on file 08/25/2022 Device with a working camera? 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 Not on file Not on file Last Filed Vital Signs Vital Sign Reading Time Taken Comments Blood Pressure 114/70 07/02/2018 10:07 AM EDT Pulse - - Temperature - - Respiratory Rate - - Oxygen Saturation - - Inhaled Oxygen Concentration - - Weight 84.9 kg (187 lb 3.2 oz) 07/02/2018 10:07 AM EDT Height 172.7 cm (5' 8 ) 12/26/2017 10:12 AM EDT Body Mass Index 28.46 12/26/2017 10:12 AM EDT Plan of Treatment Upcoming Encounters Date Type Department Care Team (Late st Contact Info) Description 07/28/2025 3:15 PM EDT Office Visit [facility] Internal Medicine [address] [place] [address] Gavni Jimenes MD [address] [place] [address] [email or web address] Health Maintenance Due Date Last Done Comments DEPRESSION SCREENING 1995 PAP SMEAR 12/26/2022 12/26/2017, 12/26/2017, 08/29/2014 MAMMOGRAM 2023 COVID-19 VACCINE (3 - 2023-2 5 season) 2023 05/18/2020, 04/27/2020 Adult Td,Tdap Booster 04/21/2024 04/21/2014 , 05/04/2003 HEPATITIS C SCREENING Completed 06/05/2018 HIV ONE-TIME SCREENING (18-6 5 YEARS) Completed 06/05/2018 SMOKING STATUS SCREENING (On ce After 26 Yrs) Completed 06/05/2018 HEPATITIS A VACCINES Aged Out No long er eligible based on patient's age to complete this topic HIB VACCINES Aged Out No longer eligi ble based on patient's age to complete this topic MENINGOCOCCAL VACCINES (ACWY) Aged Out No longer eligible based on patient's age to complete this topic MENINGOCOCCAL VACCINES (B) Aged Out N o longer eligible based on patient's age to complete this topic PNEUMOCOCCAL VACCINES (0-49 years) Aged Out No longer eligible b ased on patient's age to complete this topic Medical Devices Not on file Procedures Procedure Name Priority Date/Time Associated Diagnosis Comments HEPATITIS C ANTIBODY, QUALITATIVE Routine 06/05/2018 11:34 AM EST Encounter for supervision of other normal in first trimester PAP TEST Routine 12/26/2017 12:00 AM EDT from Last 3 Months or Most Recently Relevant to Health Maintenance Results * Hepatitis C antibody, qualitative (06/05/2018 11:34 AM EST) HCV Negative Negative [facility] Comment: This is a screening test and should be confirmed with molecular testing Blood 06/05/2018 11:3 4 AM EST 06/05/2018 11:39 AM EST us Renee Wakefield [facility] LAB BLOOD ORDERABLES Final R esult Performing Organization Address City/State/[facility] Co de Phone Number [address] [address] * Pap Smear (12/26/2017 12:00 AM EDT) 12/26/2017 12/27/2017 9:5 0 AM EDT Narrative SEE NARRATIVE - 01/02/2018 9:59 AM EDT [address] [address] Applied Psychology Teacher: Harleen Gilman MD ENGINEER BOOSTER AND EXHAUSTER Cytology Report FINAL DIAGNOSIS A. PAP SMEAR (SUREPATH) CE: SPECIMEN ADEQUACY: Satisfactory for evaluation; transformation zone absent/insufficient. Evaluation limited by thickness of cellular specimen. INTERPRETATION: NEGATIVE FOR INTRAEPITHELIAL LESION OR MALIGNANCY. Electronically Signed Out By: BERENICE Corado(ASCP) BERENICE Varma(ASCP) The Pap test is a screening test primarily for squamous cancers and precursors and has associated false-negative and false-positive results. New technologies such as liquid-based preparations may decrease but will not eliminate all false-negative results. Regular sampling and follow-up of unexplained clinical signs and symptoms are recommended to minimize false negative results. PROCEDURES/ADDENDA HPV Testing (Requested) Ordered Date: 12/27/2017 HPV Test Negative for high risk human papillomavirus types 16, 18 and the Other high risk probe set (Includes 31, 33, 35, 39, 45, 51, 52, 56, 58, 59, 66, 68) by Liborio cobase 4800 HR-HPV analysis. Clinical correlation is advised. This HPV test was performed at [facility], [address] [place] [address]. The accuracy and precision of this test has been verified in the Cytopathology laboratory of the [facility]. This test has not been cleared or approved by the U.S. Food and Drug Administration (FDA). CLINICAL HISTORY Date of Last Menstrual Period: Not Provided Menstrual History: No LMP given Other Clinical Conditions: Screening Pap Abnormal PAP: HGSIL, ASCUS 2014 SPECIMEN SOURCE A: PAP SMEAR (SUREPATH) CE Patient Name: SOO MONTESINOS : 1985 (Age: 32) Sex: F Institution: [facility] Location: [facility] Date of Collection: 12/26/2017 Date of Reported: 01/02/2018 09:59 Results to: Roya Clinton CNM Roya Clinton CNM CYTOLOGY ORDERABLES Dina l Result SEE NARRATIVE from Last 3 Months or Most Recently Relevant to Health Maintenance Insurance Member Subscriber Plan / Payer (Ef fective 2016-Present) Name:Soo Montesinos Relation to Subscriber:Not on file Name:SOO MONTESINOS Date of :1985 (Home) Address: [address] [place] [address] Payer ID:Not on file Type:HMO Address: [address] ADMINISTRATORS Member Subscriber Plan / Payer (Ef fective 2016-Present) Name:Soo Montesinos Relation to Subscriber:Not on file Name:SOO MONTESINOS Date of :1985 (Home) Address: [address] [place] [address] Payer ID:Not on file Type:O Address: [address] [place], [place] [address] [place] [address] [place] [address]O [facility]UE [facility] BENEFITS ADMINISTRATORS O O [facility] ADMINISTRATORS [facility] [employer] BENEFITS ADMINISTRATORS [facility] [employer] BENEFITS ADMINISTRATORS Care Teams Airport Operations Specialist Relationship Specialty Start Date End Date Stacey Novoa DO [address] [place] [address] PCP - General 04/05/17 Additional Source Comments The information contained in this document represents components of the legal health record. It is not the complete legal health record.[facility]
== END 2024-11-19 15:39 | disposition home or self-care (01) ==
LOC: HO.HGI 14:58
PROVIDERS: PCP Physician Assistant Medical; Visit Provider Nurse Practitioner Family
DX: K21.9 Gastro-esophageal reflux disease without esophagitis (principal); K62.3 Rectal prolapse; K76.0 Fatty (change of) liver, not elsewhere classified; K59.00 Constipation, unspecified
CPT/HCPCS: 99203

== ENCOUNTER 2024-11-20 10:39 | Outpatient (REF) | payer OTHER, SELFPAY ==
--- OUTSIDE RECORDS SUMMARY | 2024-11-20 12:10 | XMS_ITS | Clinical Summary ---
Author Organization [facility] Address [address] [place] [address] Phone Care Team Providers Care Hematology Technician Name Role Phone Stacey Novoa DO Primary Care Provider [phone] Allergies Active Allergy Reactions Criticality Noted Date [...] Description 07/28/2025 3:15 PM EDT Office Visit [facility] Internal Medicine [address] [place] [address] Gavin Jimenes MD [address] [place] [address] [email or web address] Health Maintenance Due Date Last Done Comments [...] (06/05/2018 11:34 AM EST) HCV Negative Negative [facility] Comment: This is a screening test and should be confirmed with molecular testing Blood 06/05/2018 11:3 4 AM EST 06/05/2018 11:39 AM EST us Renee Wakefield [facility] LAB BLOOD ORDERABLES Final R esult Performing Organization Address City/State/[facility] Co de Phone Number [address] [address] * Pap Smear (12/26/2017 12:00 AM EDT) 12/26/2017 12/27/2017 9:5 0 AM EDT Narrative SEE NARRATIVE - 01/02/2018 9:59 AM EDT [address] [address] Candy Feeder: Harleen Gilman MD PASSENGER CAR CLEANING SUPERVISOR Cytology Report FINAL DIAGNOSIS A. PAP SMEAR [...] advised. This HPV test was performed at [facility], [address] [place] [address]. The accuracy and precision of this test has been verified in the Cytopathology laboratory of the [facility]. This test has not been cleared or approved by the U.S. Food and Drug Administration (FDA). CLINICAL HISTORY Date of Last Menstrual Period: Not Provided Menstrual History: No LMP given Other Clinical Conditions: Screening Pap Abnormal PAP: HGSIL, ASCUS 2014 SPECIMEN SOURCE A: PAP SMEAR (SUREPATH) CE Patient Name: SOO MONTESINOS : 1985 (Age: 32) Sex: F Institution: [facility] Location: [facility] Date of Collection: 12/26/2017 Date of Reported: 01/02/2018 09:59 Results to: Roya Clinton CNM Roya Clinton CNM CYTOLOGY ORDERABLES Dina l Result SEE NARRATIVE from Last 3 Months or Most Recently Relevant to Health Maintenance Insurance Member Subscriber Plan / Payer (Ef fective 2016-Present) Name:Soo Montesinos Relation to Subscriber:Not on file Name:SOO MONTESINOS Date of :1985 (Home) Address: [address] [place] [address] Payer ID:Not on file Type:HMO Address: [address] ADMINISTRATORS Member Subscriber Plan / Payer (Ef fective 2016-Present) Name:Soo Montesinos Relation to Subscriber:Not on file Name:SOO MONTESINOS Date of :1985 (Home) Address: [address] [place] [address] Payer ID:Not on file Type:O Address: [address] [place], [place] [address] [place] [address] [place] [address]O BLUE [facility] BENEFITS ADMINISTRATORS O O [facility] ADMINISTRATORS [facility] [employer] BENEFITS ADMINISTRATORS [facility] [employer] ADMINISTRATORS Care Teams Hematology Technician Relationship Specialty Start Date End Date Stacey Novoa DO [address] [place] [address] PCP - General 04/05/17 Additional Source Comments The information contained in this document represents components of the legal health record. It is not the complete legal health record.[facility]
[2024-11-20 12:28] LABS: Alanine Aminotransferase 61 U/L (0-31); Albumin Level 5.3 g/dL (3.5-5.0); Alkaline Phosphatase 89 U/L (39-117); Anion Gap 13 (12-20); Aspartate Amino Transferase 43 U/L (5-31); Blood Urea Nitrogen 6 mg/dL (9-16); Calcium 9.6 mg/dL (8.4-10.2); Carbon Dioxide 26 mmol/L (22-29); Chloride 103 mmol/L (96-108); Estimated Glomerular Filt Rate > 60; Potassium 4.2 mmol/L (3.3-5.1); Sodium 138 mmol/L (135-145); Total Protein 8.0 g/dL (6.5-8.0)
[2024-11-20 12:45] LABS: Ferritin 29 ng/mL (10-250)
[2024-11-20 12:53] LABS: HBS Num1 578.12 mIU/mL (0-7.99); HBc Num1 0.10 S/CO (0.00-0.79); HBsAGNum1 0.49 S/CO (0.00-0.99); Hepatitis A Antibody IgM 0.22 Index (0-0.79); Hepatitis B Surface Antigen Negative (Negative); ~HepC Num1 0.12 S/CO (0.00-0.79); ~Hepatitis A Antibody IgM Nonreactive (Nonreactive); ~Hepatitis B Surface Antibody REACTIVE (Nonreactive); ~Hepatitis C Antibody Nonreactive (Nonreactive)
[2024-11-20 13:06] LABS: Hemoglobin A1C 136.3167 umol/L; Total Hemoglobin (HGBA1C) 3730.3676 umol/L
[2024-11-20 13:33] LABS: HIV Num 1 0.07 S/CO (0.00-0.99)
[2024-11-25 17:53] LABS: Anti Nuclear Antibody Pattern Nuclear, Speckled; Anti Nuclear Antibody Screen POSITIVE (NEGATIVE); Anti Nuclear Antibody Titer 1:40 titer
== END 2024-11-20 10:40 | disposition home or self-care (01) ==
LOC: HO.LAB 10:39
PROVIDERS: PCP Physician Assistant Medical; Visit Provider Nurse Practitioner Family
DX: Z11.59 Encounter for screening for other viral diseases (principal); R73.03 Prediabetes; K76.0 Fatty (change of) liver, not elsewhere classified
CPT/HCPCS: 36415; 80053; 82728; 83036; 86015; 86038; 86039; 86381; 86704; 86706; 86709; 86803; 87340; 87389

== ENCOUNTER 2024-11-28 08:44 | Outpatient (AMB) | payer OTHER, SELFPAY ==
--- NOTE | 2024-11-28 08:45 | A.OFFVIS_ITS ---
Intake Visit Reasons: result Intake Note: Patient telehealth follow up for results. Patient denies any GI issues. Chief [employer] Division Required: No Allergies No Known Allergies Allergy (Verified 11/28/24 08:45) HPI HPI result: Details: Patient is a 38-year-old female with PMH of anxiety, obesity and hyperlipidemia. Telephone visit conducted today to discuss recent lab results. Patient scheduled for telehealth visit. Acknowledges and consents to: -Understanding purpose/nature of telehealth -Aware of limitations vs. in-person exams -Privacy/confidentiality maintained per HIPAA -May stop visit anytime or request in-person care Work up initiated to confirm suspected hepatic steatosis. However, informed Soo that a her recent labs showed a positive antinuclear antibody and elevated antismooth muscle antibodies, suggesting an autoimmune liver disease. Her reported symptoms include chronic fatigue, which she attributes to working multiple jobs, and chronic back and ankle pain. She is experiencing leg cramps but denies having itching or additional joint pains. Regular menstrual cycles are maintained. Previous lab results have ruled out anemia and electrolyte imbalance. An upper GI series is scheduled to assist in the evaluation for epigastric pain/reflux. Imaging is scheduled for 12/18/24. [facility] Medical History (Updated 11/27/24 @ 16:56 by Lubna De Dios CNP) Elevated LFTs Constipation Epigastric pain Acid reflux Fatty liver UTI (urinary tract infection) Dysuria Pre-diabetes Class 1 obesity with body mass index (BMI) of 31.0 to 31.9 in adult Elevated AST (SGOT) Elevated ALT measurement Pure hypercholesterolemia, unspecified Hyperlipidemia LDL goal <100 Anxiety Muscle cramps Allergic rhinitis Establishing care with new doctor, encounter for Cervical cancer screening Rectal prolapse Family history of breast cancer RUQ abdominal pain Surgical History History of ankle surgery Family History Mother A-fib BP (high blood pressure) Breast cancer Father A-fib BP (high blood pressure) Social History Housing: House Alcohol intake: current Alcohol intake frequency: a few times a week Patient Tobacco Use Status: Never used Tobacco service: No Current occupational status: employed Cognitive needs: No Hearing needs: No Vision needs: Yes (rx contacts/rx glasses) Physical Exam Const Orientation/consciousness: patient oriented x3 Resp Other: Normal breath sounds/voice sounds by phone, breathing effortless, no wheezing noted. Patient spoke in full sentences without difficulty. Neuro General: patient oriented x3 Cognition (Neuro): normal cognition Psych Appearance: grossly normal Mental Status: mental status grossly normal Speech and movement: Normal speech and movement present Affect: normal affect Attitude: cooperative Thought process: Normal thought process present Thought content: Normal thought content present Insight: Good insight present (Psych) Judgement: Good judgement present (Psych) Assessment & Plan Assessment & Plan (1) Elevated LFTs: Code(s): R79.89 - Other specified abnormal findings of blood chemistry Category: Medical Plan: Fatty liver remains a differential. However, cannot exclude autoimmune etiology with recent labs findings. Testing: repeat VALE and SMA; celiac serology, Hep A to confirm immunity and additional screening labs. To completed anytime 12/18 on. Lifestyle modifications: -Discussed fatigue related to lifestyle -adequate hydration with water, stretching and physical activity as tolerated Follow-up: In office, scheduled January 14, 2025. Instructions to report worsening or new symptoms Plan Keep follow up scheduled for 01/14/2025 Time: I spent a total of 20 minutes on the date of encounter which includes: Preparing to see the patient (reviewed previous documentation, test results and medical history) Performing a medically appropriate exam and/or evaluation Ordering medications, tests, and procedures Documenting clinical information in the health record Orders: Orders Hepatitis A IgG Today R79.89 - Other specified abnormal findings of blood chemistry Gamma Glutamyl Transpeptidase Today R79.89 - Other specified abnormal findings of blood chemistry Coding Level of Care Code Established Pt Tele Est Pt Level 3 (71636) Patient Type Established Diagnoses Elevated LFTs R79.89
--- OUTSIDE RECORDS SUMMARY | 2024-11-28 09:37 | XMS_ITS | Clinical Summary ---
Author Organization [facility] Address [address] [place] [address] Phone Care Team Providers Care Box Lining Machine Operator Name Role Phone Stacey Novoa DO Primary Care Provider [phone] Allergies Active Allergy Reactions Criticality Noted Date [...] Description 07/28/2025 3:15 PM EDT Office Visit [facility] Internal Medicine [address] [place] [address] Gavin Jimenes MD [address] [place] [address] [email or web address] Health Maintenance Due Date Last Done Comments [...] (06/05/2018 11:34 AM EST) HCV Negative Negative [facility] Comment: This is a screening test and should be confirmed with molecular testing Blood 06/05/2018 11:3 4 AM EST 06/05/2018 11:39 AM EST us Renee Wakefield [facility] LAB BLOOD ORDERABLES Final R esult Performing Organization Address City/State/[facility] Co de Phone Number [address] [address] * Pap Smear (12/26/2017 12:00 AM EDT) 12/26/2017 12/27/2017 9:5 0 AM EDT Narrative SEE NARRATIVE - 01/02/2018 9:59 AM EDT [address] [address] Medical Technician: Harleen Gilman MD MOTOR VEHICLE DISPATCHER Cytology Report FINAL DIAGNOSIS A. PAP SMEAR [...] advised. This HPV test was performed at [facility], [address] [place] [address]. The accuracy and precision of this test has been verified in the Cytopathology laboratory of the [facility]. This test has not been cleared or approved by the U.S. Food and Drug Administration (FDA). CLINICAL HISTORY Date of Last Menstrual Period: Not Provided Menstrual History: No LMP given Other Clinical Conditions: Screening Pap Abnormal PAP: HGSIL, ASCUS 2014 SPECIMEN SOURCE A: PAP SMEAR (SUREPATH) CE Patient Name: ANTONIO CONNORS : 1985 (Age: 32) Sex: F Institution: [facility] Location: [facility] Date of Collection: 12/26/2017 Date of Reported: 01/02/2018 09:59 Results to: Roya Clinton CNM Roya Clinton CNM CYTOLOGY ORDERABLES Dina l Result SEE NARRATIVE from Last 3 Months or Most Recently Relevant to Health Maintenance Insurance Member Subscriber Plan / Payer (Ef fective 2016-Present) Name:Antonio Connors Relation to Subscriber:Not on file Name:ANTONIO CONNORS Date of :1985 (Home) Address: [address] [place] [address] Payer ID:Not on file Type:HMO Address: [address] ADMINISTRATORS Member Subscriber Plan / Payer (Ef fective 2016-Present) Name:Antonio Connors Relation to Subscriber:Not on file Name:ANTONIO CONNORS Date of :1985 (Home) Address: [address] [place] [address] Payer ID:Not on file Type:O Address: [address] [place], [place] [address] [place], [place] [address] [place], [place] [address]O BLUE [facility] BENEFITS ADMINISTRATORS O O [facility] ADMINISTRATORS [facility] [employer] BENEFITS ADMINISTRATORS [facility] [employer] BENEFITS ADMINISTRATORS Care Teams Box Lining Machine Operator Relationship Specialty Start Date End Date Stacey Novoa DO [address] [place] [address] PCP - General 04/05/17 Additional Source Comments The information contained in this document represents components of the legal health record. It is not the complete legal health record.[facility]
== END 2024-11-28 14:00 | disposition home or self-care (01) ==
LOC: HO.HGI 08:44
PROVIDERS: PCP Physician Assistant Medical; Visit Provider Nurse Practitioner Family
DX: R74.01 Elevation of levels of liver transaminase levels (principal)
CPT/HCPCS: 98967

== ENCOUNTER 2024-12-18 07:53 | Outpatient (REF) | payer OTHER, SELFPAY ==
--- NOTE | ~2024-12-18 | FL_ITS ---
EXAMINATION: XR UPPER GI SERIES WITH SMALL BOWEL CLINICAL INFORMATION: Gastroesophageal reflux disease without esophagitis. COMPARISON: None available. TECHNIQUE: Routine upper GI air contrast study and small bowel follow-through was performed in upright and lying position. FINDINGS: KUB obtained prior to the exam reveals nonspecific bowel gas pattern. Following oral administration of thick barium and effervescent granules is normal propagation bolus from the oral cavity through the pharynx, esophagus into stomach without obstruction, narrowing or stricture. There is no extrinsic compression or intraluminal filling defect. On placing patient supine and prone lying the course, caliber and peristalsis of the stomach, duodenal bulb and sweep is normal. Mild increased gastric secretions are noted. No duodenal erosions or ulcerations seen. The mucosal pattern of the stomach and duodenum is normal. Following GI study extra one glass of barium was administered and sequential images over the abdomen were obtained on 120 minutes. The course and caliber of the small bowel loops are normal. The ileocecal junction is widely patent. A spot images through the ileocecal junction reveals a normal-appearing small appendix. FLUOROSCOPY TIME: 2 minutes and 8 seconds DOSE AREA PRODUCT: 40.77 uGy-m2 (microgray-meter squared) FL/FL upper GI small bowel IMPRESSION: Mild gastroesophageal reflux without hiatal hernia. Otherwise upper GI exam is unremarkable. Delayed small bowel transit time of 120 minutes but otherwise unremarkable. Electronically signed by: Kodak Avila MD 12/18/2024 03:51 PM EDT
--- OUTSIDE RECORDS SUMMARY | 2024-12-18 07:58 | XMS_ITS | Clinical Summary ---
Author Organization [facility] Address [address] [place] [address] Phone Care Team Providers Care Surgical Services Assistant Name Role Phone Stacey Novoa DO Primary [...] Description 07/28/2025 3:15 PM EDT Office Visit [facility] Internal Medicine [address] [place] [address] Gavin Jimenes MD [address] [place] [address] [email or web address] Health Maintenance Due Date Last Done Comments DEPRESSION SCREENING 1995 PAP SMEAR 12/26/2022 12/26/2017, 12/02, 08/29/2014 MAMMOGRAM 2023 Adult Td,Tdap Booster 04/21/2024 04/21/2014, 004 INFLUENZA VACCINE (#1) 2024 8, 12/20/2015, 01/01/2015, Additional history exists COVID-19 VACCINE ( season) 2024 05/18/2020, 04/27/2020 HEPATITIS C SCREENING Completed 06/05/2018 HIV ONE-TIME SCREENING (18-65 YEARS) Completed 06/05/2018 SMOKING STATUS SCREENING (Once After 26 Yrs) Completed 06/05/2018 HEPATITIS A [...] (0-49 years) Aged Out No longer eligible based on [...] (06/05/2018 11:34 AM EST) HCV Negative Negative [facility] Comment: This is a screening test and should be confirmed with molecular testing Blood 06/05/2018 11:3 4 AM EST 06/05/2018 11:39 AM EST us Renee Wakefield [facility] LAB BLOOD ORDERABLES Final R esult Performing Organization Address City/State/[facility] Co de Phone Number [address] [address] * Pap Smear (12/26/2017 12:00 AM EDT) 12/26/2017 12/27/2017 9:5 0 AM EDT Narrative SEE NARRATIVE - 01/02/2018 9:59 AM EDT [address] [address] Slagger: Harleen Gilman MD BAGGAGE SMASHER Cytology Report FINAL DIAGNOSIS A. PAP SMEAR [...] advised. This HPV test was performed at [facility], [address] [place] [address]. The accuracy and precision of this test has been verified in the Cytopathology laboratory of the [facility]. This test has not been cleared or approved by the U.S. Food and Drug Administration (FDA). CLINICAL HISTORY Date of Last Menstrual Period: Not Provided Menstrual History: No LMP given Other Clinical Conditions: Screening Pap Abnormal PAP: HGSIL, ASCUS 2014 SPECIMEN SOURCE A: PAP SMEAR (SUREPATH) CE Patient Name: ANTONIO CONNORS : 1985 (Age: 32) Sex: F Institution: [facility] Location: [facility] Date of Collection: 12/26/2017 Date of Reported: 01/02/2018 09:59 Results to: Roya Clinton CNM Roya Clinton CNM CYTOLOGY ORDERABLES Dina benson Result SEE NARRATIVE from Last 3 Months or Most Recently Relevant to Health Maintenance Insurance [facility] HMO [employer]UE [employer] BENEFITS ADMINISTRATORS [facility] [employer] BENEFITS ADMINISTRATORS [facility] BENEFITS ADMINISTRATORS O O BLUE [facility] BENEFITS ADMINISTRATORS [facility] [employer] BENEFITS ADMINISTRATORS [facility] [employer] BENEFITS ADMINISTRATORS Care Teams Surgical Services Assistant Relationship Specialty Start Date End Date Stacey Novoa DO [facility] [place] [address] PCP - General 04/05/17 Additional Source Comments The information contained in this document represents components of the legal health record. It is not the complete legal health record.[facility]
== END 2024-12-18 07:54 | disposition home or self-care (01) ==
LOC: HO.XRAY 07:53
PROVIDERS: PCP Physician Assistant Medical; Visit Provider Nurse Practitioner Family
DX: R10.13 Epigastric pain (principal); K21.9 Gastro-esophageal reflux disease without esophagitis
CPT/HCPCS: 74240; 74248

== ENCOUNTER → 2024-12-18 07:53 | Outpatient (BNV) | payer OTHER, SELFPAY | PROVIDERS: PCP Physician Assistant Medical; Visit Provider Radiology Diagnostic Radiology | DX: K21.9 Gastro-esophageal reflux disease without esophagitis (principal) | CPT/HCPCS: 74246; 74248 ==

== ENCOUNTER 2025-01-06 09:03 | Outpatient (REF) | payer OTHER, SELFPAY ==
--- OUTSIDE RECORDS SUMMARY | 2025-01-06 09:55 | XMS_ITS | Clinical Summary ---
Author Organization [facility] Address [address] [place] [address] Phone Care Team Providers Care Optical Instrument Assembly Supervisor Name Role Phone Stacey Novoa DO Primary [...] Description 07/28/2025 3:15 PM EDT Office Visit [facility] Internal Medicine [address] [place] [address] Gavin Jimenes MD [address] [place] [address] [email or web address] Health Maintenance Due Date Last Done Comments [...] (06/05/2018 11:34 AM EST) HCV Negative Negative [facility] Comment: This is a screening test and should be confirmed with molecular testing Blood 06/05/2018 11:3 4 AM EST 06/05/2018 11:39 AM EST us Renee Wakefield [facility] LAB BLOOD ORDERABLES Final R esult Performing Organization Address City/State/[facility] Co de Phone Number [address] [address] * Pap Smear (12/26/2017 12:00 AM EDT) 12/26/2017 12/27/2017 9:5 0 AM EDT Narrative SEE NARRATIVE - 01/02/2018 9:59 AM EDT [address] [address] Care Manager: Harleen Gilman MD BUTCHER HELPER Cytology Report FINAL DIAGNOSIS A. PAP SMEAR [...] was performed at [facility], [address] [place] [address]. The accuracy and precision of this test [...] : 1985 (Age: 32) Sex: F Institution: [facility] Location: [facility] Date of Collection: 12/26/2017 Date of Reported: 01/02/2018 09:59 Results to: Roya Clinton CNM Roya Clinton CNM CYTOLOGY ORDERABLES Dina benson Result SEE NARRATIVE from Last 3 Months or Most Recently Relevant to Health Maintenance Insurance [facility] HMO BLUE [employer] BLUE BENEFITS ADMINISTRATORS [facility] [employer] BENEFITS ADMINISTRATORS [facility] BENEFITS ADMINISTRATORS O O [facility] BENEFITS ADMINISTRATORS [facility] [employer] BENEFITS ADMINISTRATORS [facility] [employer] BENEFITS ADMINISTRATORS Care Teams Optical Instrument Assembly Supervisor Relationship Specialty Start Date End Date Stacey Novoa DO [facility] [place] [address] PCP - General 04/05/17 Additional Source Comments The information contained in this document represents components of the legal health record. It is not the complete legal health record.[facility]
[2025-01-06 10:34] LABS: Gamma Glutamyl Transpeptidase 50 U/L (7-33)
[2025-01-07 22:38] LABS: Prot Elec - Albumin 4.5 g/dL (3.8-4.8); Prot Elec - Alpha1 0.3 g/dL (0.2-0.3); Prot Elec - Alpha2 0.7 g/dL (0.5-0.9); Prot Elec - Beta 1 0.4 g/dL (0.4-0.6); Prot Elec - Beta 2 0.5 g/dL (0.2-0.5); Prot Elec - Gamma 0.9 g/dL (0.8-1.7); Prot Elec - Total Protein 7.3 g/dL (6.1-8.1)
[2025-01-09 08:54] LABS: ~Hepatitis A Antibody IgG 0.33 S/CO (0.00-0.99)
[2025-01-11 11:44] LABS: Liver Kidney Microsomal Ab <=20.0 U (<=20.0)
[2025-01-19 15:13] LABS: Anti Nuclear Antibody Pattern Nuclear, Speckled; Anti Nuclear Antibody Screen POSITIVE (NEGATIVE); Anti Nuclear Antibody Titer 1:40 titer
== END 2025-01-06 09:04 | disposition home or self-care (01) ==
LOC: HO.LAB 09:03
PROVIDERS: PCP Physician Assistant Medical; Visit Provider Nurse Practitioner Family
DX: Z01.84 Encounter for antibody response examination (principal); Z11.59 Encounter for screening for other viral diseases; R79.89 Other specified abnormal findings of blood chemistry
CPT/HCPCS: 36415; 82784; 82977; 84165; 86015; 86038; 86039; 86364; 86376; 86708

== ENCOUNTER 2025-02-11 13:00 | Outpatient (AMB) | payer OTHER, SELFPAY ==
--- NOTE | 2025-02-11 13:04 | A.OFFVIS_ITS ---
Vital Signs 02/11/25 13:07 Height 5 ft 8 in Weight 187 lb BMI 28.4 BP 112/84 Blood Pressure Location Rt brachial Position Sitting Pulse 92 Pulse Source Pulse Oximeter Pulse Oximetry (%) 99 Oxygen Delivery Method Room Air Intake Visit Reasons: f/u Intake Note: Est pt for mgmt of GERD. CC; C.O. generalized GI upset and loose stools and nausea intermittently x2-3 weeks. Pt reports that she has been increasing the GLP 1 compound over the last few months, she is unsure if this is related or not. Healthcare Manager Required: No Accompanied by: Self / Same As Patient Allergies No Known Allergies Allergy (Verified 11/28/24 08:45) HPI HPI f/u: Details: Patient is a 38-year-old female with PMH of anxiety, obesity and hyperlipidemia. F/u of abnormal liver chemistries (hx fatty liver, elevated anti-smooth muscle Ab, positive VALE), GI reflux, recent changes in bowel pattern, and ongoing weight loss management. Pt continues to feel generally well aside from chronic fatigue, likely occupational. Denies new joint pain, pruritus, or jaundice. No reported hematuria or dark urine. Liver panel previously stable; surveillance ongoing. GERD sx significantly improved with pantoprazole 40 mg daily; mild reflux confirmed on recent upper GI series, remains well controlled. Bowel pattern transitioned from prior constipation to diarrhea after component change in compounded GLP-1 injection (used for wt loss), currently being monitored and adjusted monthly through [facility]. No rectal prolapse per yard demurrage clerk exam; exam revealed rectocele, managed conservatively. No recent hospitalizations, UC visits, or significant flares. Ongoing intentional wt loss (down from 202 lbs in Oct to 187 lbs currently). Reports no issues with med adherence. [facility] Medical History (Updated 02/11/25 @ 13:37 by Lubna De Dios CNP) Rectocele Overweight (BMI 25.0-29.9) Elevated LFTs Constipation Epigastric pain Fatty liver UTI (urinary tract infection) Dysuria Pre-diabetes Class 1 obesity with body mass index (BMI) of 31.0 to 31.9 in adult Elevated AST (SGOT) Elevated ALT measurement Pure hypercholesterolemia, unspecified Hyperlipidemia LDL goal <100 Anxiety Muscle cramps Allergic rhinitis Establishing care with new doctor, encounter for Cervical cancer screening Rectal prolapse Family history of breast cancer RUQ abdominal pain Surgical History (Updated 02/11/25 @ 13:35 by Lubna De Dios CNP) Acid reflux History of ankle surgery Family History Mother A-fib BP (high blood pressure) Breast cancer Father A-fib BP (high blood pressure) Social History Housing: House Alcohol intake: current Alcohol intake frequency: a few times a week Patient Tobacco Use Status: Never used Tobacco service: No Current occupational status: employed Cognitive needs: No Hearing needs: No Vision needs: Yes (rx contacts/rx glasses) Review of Systems Const Reports as per HPI ENT Reports as per HPI Card Reports as per HPI Resp Reports as per HPI GI Reports as per HPI Reports as per HPI Physical Exam Vital Signs: Last Vital Signs Pulse 92 02/11/25 13:07 BP 112/84 02/11/25 13:07 Pulse Ox 99 02/11/25 13:07 Oxygen Delivery Method Room Air 02/11/25 13:07 BMI result Body Mass Index 28.4 Const General: healthy appearing, no acute distress and well developed Nutritional Appearance: average body habitus Orientation/consciousness: patient oriented x3 HEENT Head: Yes normal to inspection, Yes normocephalic and Yes atraumatic Face and sinus: Yes normal facial exam Eyes General: appearance normal, both eyes and all related structures Neck Neck: Yes normal visual inspection Resp Effort & Inspection: normal respiratory effort, able to speak in complete sent ences, no tracheal deviation and symmetric chest movement Cardio Jugular venous distension: no JVD Neuro General: patient oriented x3 Gait exam (Neuro): Normal gait present Psych Appearance: grossly normal Mental Status: mental status grossly normal Speech and movement: Normal speech and movement present Affect: normal affect Attitude: cooperative Thought process: Normal thought process present Thought content: Normal thought content present Insight: Good insight present (Psych) Judgement: Good judgement present (Psych) Results Reviewed Results Reviewed: Date of Service: 12/18/24 Procedure(s): FL upper GI small bowel Accession Number(s): [id number] cc: Pao Danielson PA-C; Lubna De Dios CNP~ Reason for Exam: K21.9 - Gastro-esophageal reflux disease without esophagitis EXAMINATION: XR UPPER GI SERIES WITH SMALL BOWEL CLINICAL INFORMATION: Gastroesophageal reflux disease without esophagitis. COMPARISON: None available. TECHNIQUE: Routine upper GI air contrast study and small bowel follow-through was performed in upright and lying position. FINDINGS: KUB obtained prior to the exam reveals nonspecific bowel gas pattern. Following oral administration of thick barium and effervescent granules is normal propagation bolus from the oral cavity through the pharynx, esophagus into stomach without obstruction, narrowing or stricture. There is no extrinsic compression or intraluminal filling defect. On placing patient supine and prone lying the course, caliber and peristalsis of the stomach, duodenal bulb and sweep is normal. Mild increased gastric secretions are noted. No duodenal erosions or ulcerations seen. The mucosal pattern of the stomach and duodenum is normal. Following GI study extra one glass of barium was administered and sequential images over the abdomen were obtained on 120 minutes. The course and caliber of the small bowel loops are normal. The ileocecal junction is widely patent. A spot images through the ileocecal junction reveals a normal-appearing small appendix. FLUOROSCOPY TIME: 2 minutes and 8 seconds DOSE AREA PRODUCT: 40.77 uGy-m2 (microgray-meter squared) FL/FL upper GI small bowel IMPRESSION: Mild gastroesophageal reflux without hiatal hernia. Otherwise upper GI exam is unremarkable. Delayed small bowel transit time of 120 minutes but otherwise unremarkable. Assessment & Plan Assessment & Plan (1) Elevated LFTs: Code(s): R79.89 - Other specified abnormal findings of blood chemistry Category: Medical Plan: Stable; no new sx or LFT elevation, autoAb trending down/stable. No evidence of autoimmune hepatitis per labs and clinical. Fib-4 0.63-Advanced fibrosis excluded, Approximate fibrosis stage: Brent 0-1 Additional Testing: - Order repeat LFTs + CMP now for surveillance (baseline, >3 mo since last checked). - Liver biopsy discussed as gold standard for definitive dx of autoimmune hepatitis; not indicated at present due to lack of sx and stable labs. Will reconsider bx if LFTs increase (>=-3x ULN) or if new hepatic sx develop Medications: - None initiated for hepatic / autoimmune dx at present. Lifestyle Recommendations: - Continue wt loss efforts, avoid hepatotoxicants, reinforce DM, alcohol intake, and healthy diet. F/u Plan: - Review labs when available; reassess in 6 mo unless results or clinical status change (sooner prn). (2) Acid reflux: Code(s): K21.9 - Gastro-esophageal reflux disease without esophagitis Category: Surgical Qualifiers: Esophagitis presence: esophagitis presence not specified Qualified Code(s): K21.9 - Gastro-esophageal reflux disease without esophagitis Plan: Controlled; pantoprazole effective, pt sx-free. upper GI w/ mild reflux, no erosive esophagitis or hernia. Additional Testing: - None; defer EGD unless new/worsening sx. Medications: - Continue pantoprazole 40 mg daily. Lifestyle Recommendations: - Maintain GERD self-management: avoid large/fatty meals, upright post- prandially, avoid eating/lying down, maintain hydration, avoid triggers. - No EGD needed at present. Provided education re: red flag sx.. F/u Plan: - Continue current regimen, reassess at next routine visit or prn sx. (3) Overweight (BMI 25.0-29.9): Code(s): E66.3 - Overweight Category: Medical Plan: Ongoing wt loss (down 15 lbs), now experiencing diarrhea after formula modified for prior constipation. GI sx (stool pattern and delayed small bowel transit time) likely related to ongoing titration/compounding of GLP-1 inj; pt monitors and communicates monthly with supplying pharmacy. Additional Testing: - None unless persistent diarrhea, dehydration, or other GI sx. Medications: - Continue current compounded GLP-1 injection per pharmacy plan; pt notifies pharmacist of current SE, pending further adjustment. Lifestyle Recommendations: - Reinforce behavior/habit formation for wt maintenance post-GLP-1. Intermittent fasting/diet mod discussed. Advise monitoring hydration w/ ongoing diarrhea. Referrals / Coordination of Care: - None at present. Consider dietitian if needed for ongoing dietary mod or post- wt loss transition. F/u Plan: - Monitor closely for significant or persistent diarrhea, wt change, or new SEs. Provide update at next f/u; PRN sooner if sx escalate. (4) Rectocele: Code(s): N81.6 - Rectocele Category: Medical Plan: Recently evaluated by yard demurrage clerk; nonconcerning, no additional sx or intervention required. Additional Testing: - None indicated. Medications: - None. Lifestyle Recommendations: - Monitor for sx of constipation, retention, incontinence. Referrals / Coordination of Care: - None currently. F/u Plan: - PRN if change in sx. Plan Follow-up in 6 month or sooner as needed Time: I spent a total of 24 minutes on the date of encounter which includes: Preparing to see the patient (reviewed previous documentation, test results and medical history) Performing a medically appropriate exam and/or evaluation Ordering medications, tests, and procedures Documenting clinical information in the health record Orders: Orders Comprehensive [place]. Panel Fast Today K76.0 - Fatty (change of) liver, not elsewhere classified, R79.89 - Other specified abnormal findings of blood chemistry Comprehensive [place]. Panel Fast 3 Months K76.0 - Fatty (change of) liver, not elsewhere classified, R79.89 - Other specified abnormal findings of blood chemistry Coding Level of Care Code Est Pt Level 3 (05065) Diagnoses Elevated LFTs R79.89 Gastroesophageal reflux disease, unspecified whether esophagitis present K21.9 Esophagitis presence: esophagitis presence not specified Overweight (BMI 25.0-29.9) E66.3 Rectocele N81.6
[2025-02-11 13:07] VITALS: BP 112/84; PULSE 92; O2SAT 99; BMI 28.4
--- OUTSIDE RECORDS SUMMARY | 2025-02-11 15:42 | XMS_ITS | Clinical Summary ---
Author Organization [facility] Address [address] [place] [address] Phone Care Team Providers Care Emergency Doctor Name Role Phone Stacey Novoa DO Primary Care Provider [phone] Allergies Active Allergy Reactions Criticality Noted Date [...] Description 07/28/2025 3:15 PM EDT Office Visit [facility] Internal Medicine [address] [place] [address] Gavin Jimenes MD [address] [place] [address] [email or web address] Maintenance Due Date Last Done Comments DEPRESSION SCREENING 1995 PAP SMEAR 12/26/2022 12/26/2017, 12/02, 08/29/2014 MAMMOGRAM 2023 Adult Td,Tdap Booster 04/21/2024 04/21/2014, 004 INFLUENZA VACCINE (#1) 2024 8, 12/20/2015, 01/01/2015, Additional history exists COVID-19 VACCINE ( season) 2024 05/18/2020, 04/27/2020 HEPATITIS C SCREENING Completed 06/05/2018, 019 HIV ONE-TIME SCREENING (18-65 YEARS) Completed 06/05/2018 SMOKING STATUS SCREENING (Once After 26 Yrs) Completed 06/05/2018 HEPATITIS A VACCINES Aged Out No long er eligible based on patient's age to complete this topic HIB VACCINES Aged Out No longer eligi ble based on patient's age to complete this topic IPV VACCINES Aged Out No longer eligi ble [...] (06/05/2018 11:34 AM EST) HCV Negative Negative [facility] Comment: This is a screening test and should be confirmed with molecular testing Blood 06/05/2018 11:3 4 AM EST 06/05/2018 11:39 AM EST us Renee Wakefield [facility] LAB BLOOD BKR ORDERABLES Fin al Result Performing Organization Address City/State/[facility] Co de Phone Number [address] [address] * Pap Smear (12/26/2017 12:00 AM EDT) 12/26/2017 12/27/2017 9:5 0 AM EDT Narrative SEE NARRATIVE - 01/02/2018 9:59 AM EDT [address] [address] Woolen Suiting Shrinker: Harleen Gilman MD NET DEVELOPER Cytology Report FINAL DIAGNOSIS A. PAP SMEAR [...] advised. This HPV test was performed at [facility] [place], [address] [place] [address]. The accuracy and precision of this test has been verified in the Cytopathology laboratory of the [facility] [place]. This test has not been cleared or approved by the U.S. Food and Drug Administration (FDA). CLINICAL HISTORY Date of Last Menstrual Period: Not Provided Menstrual History: No LMP given Other Clinical Conditions: Screening Pap Abnormal PAP: HGSIL, ASCUS 2014 SPECIMEN SOURCE A: PAP SMEAR (SUREPATH) CE Patient Name: SOO MONTESINOS : 1985 (Age: 32) Sex: F Institution: [facility] Location: [facility] Date of Collection: 12/26/2017 Date of Reported: 01/02/2018 09:59 Results to: Roya Clinton CNM Roya Clinton CNM CYTOLOGY ORDERABLES Dina benson Result SEE NARRATIVE from Last 3 Months or Most Recently Relevant to Health Maintenance Insurance [facility] HMO [employer] BENEFITS ADMINISTRATORS [employer] BENEFITS ADMINISTRATORS [facility] [employer]OSS BLUE BENEFITS ADMINISTRATORS O O [facility] ADMINISTRATORS [address] [place], [place] [address] BENEFITS ADMINISTRATORS O [facility] BENEFITS ADMINISTRATORS Care Teams Emergency Doctor Relationship Specialty Start Date End Date Stacey Novoa DO [address] [place] [address] PCP - General 04/05/17 Additional Source Comments The information contained in this document represents components of the legal health record. It is not the complete legal health record.[facility]
== END 2025-02-11 13:28 | disposition home or self-care (01) ==
LOC: HO.HGI 13:00
PROVIDERS: PCP Physician Assistant Medical; Visit Provider Nurse Practitioner Family
DX: R79.89 Other specified abnormal findings of blood chemistry (principal); K21.9 Gastro-esophageal reflux disease without esophagitis; E66.3 Overweight; N81.6 Rectocele
CPT/HCPCS: 99213